=== PATIENT | female | born 1975 | race Caucasian/White ===

== ENCOUNTER 2024-06-26 07:44 | Outpatient (CLI) | payer OTHER, SELFPAY ==
--- NOTE | 2024-06-26 08:15 | CRLHL7_ITS ---
For Patients: As a result of the Century Cures Act, medical imaging exams and procedure reports are released immediately into your electronic medical record. You may view this report before your referring provider. If you have questions, please contact your health care provider. INDICATION: Leiomyoma of uterus TECHNIQUE: Multiplanar imaging of the pelvis was performed without and with 15 cc of Dotarem contrast material IV. COMPARISON: Pelvic ultrasound of 12/07/2019 FINDINGS: An intramural or submucosal fibroid measuring 12 x 11 x 7 cm is demonstrated central uterus. This can not be further localized as the endometrial stripe can not be identified with certainty. A 3.4 x 3.0 x 1.5 cm fibroid is demonstrated in right anterior lower uterine body and another 3.1 x 2.8 x 1.7 cm fibroid is demonstrated in the posterior lower uterine body. No other obvious fibroids noted. The ovaries are normal in size and shape. Multiple follicles are demonstrated in both ovaries. Small amount of physiologic free fluid is noted. The bowel is unremarkable except for colonic diverticulosis. No lymphadenopathy or other abnormality is demonstrated. IMPRESSION: Uterine fibroids, as above. Dictated by Delbert Garnett MD @ 06/27/2024 7:16:18 AM (Electronically Signed)
== END 2024-06-26 07:45 | disposition home or self-care (01) ==
LOC: MRI 07:45
PROVIDERS: Visit Provider Obstetrics & Gynecology
DX: D25.9 Leiomyoma of uterus, unspecified (principal)
CPT/HCPCS: 72197; A9575

== ENCOUNTER 2024-09-30 07:05 | Inpatient (IN) | payer OTHER, SELFPAY ==
[2024-09-30] VITALS (24 sets, daily range): BP systolic 140–189; BP diastolic 82–107; PULSE 71–85; RESP 14–20; TEMP 36.3–37.2; O2SAT 95–100; BMI 30.4
[2024-09-30 07:44] LABS: Hemoglobin* 13.8 gm/dL (12.0-16.0)
[2024-09-30 07:46] LABS: Ur HCG Qualitative* Negative (Negative)
[2024-09-30 08:02] LABS: Creatinine* 0.8 mg/dL (0.5-1.5); Estimated Glomerular Filt Rate 90 ml/min
[2024-09-30] MEDS: SODIUM CHLORIDE 0.9 % (FLUSH) 10 ML SYRINGE IVF (08:02)
[2024-09-30] MEDS: LACTATED RINGERS 1000 ML 1,000 ML 100 ML IV ×2 (08:57→10:44)
--- NOTE | 2024-09-30 08:57 | W.PM.H&PU ---
History & Physical Update History & Physical Update H&P Reviewed and patient assessed: No changes noted H&P Updates: Esperanza is a 48yo (C/S x2) seen in pre-op prior to [facility], bilateral salpingectomy and diagnostic cystoscopy for fibroid uterus. Please see my prior notes from 07/11 and 06/19/24 for complete details. Patient is feeling well today, has no acute concerns. We discussed her planned procedure in detail. I explained that I will try to use her existing Pfannenstiel incisions, but these may need to be extended more lateral than her previous incisions or a midline vertical incision could be required depending on our exam under anesthesia as this may allow for better visualization. We reviewed the risks of surgery again, including bleeding, infection, damage to surrounding structures and medical complications of surgery/anesthesia (VTE, AMI, stroke). Written consent was read and signed. We reviewed anticipated hospitalization of 2 nights. We again reviewed postoperative instructions and restrictions. Preop labs reviewed - UPT negative, hemoglobin 13.8, creatinine 0.8.
[2024-09-30] MEDS: CEFAZOLIN 2 GM INJ IVP (09:09)
--- NOTE | 2024-09-30 09:43 | W.PM.NB ---
Nerve Block Nerve Block Time Seen by Provider: 09:00 Date Seen: 09/30/24 Type of block requested by surgeon for post-operative analgesia: TAP Side: bilateral Time out performed: Yes Verification of patient name: Yes Verification of date of : Yes Site marking: site marked Name of person performing procedure: Zohaib Continuous monitoring Was continuous monitoring of O2 sat, B/P, radiation monitor, recorded every 15 minutes?: Yes Procedure Checklist: sterile prep, needles and gloves Ultrasound guided. Images saved: Yes Medications given in 5ml increments after negative aspiration: Marcaine %: 0.25 mL: 30 Needle gauge: 20 and Exparel mL: 10 Patient tolerated procedure well: Yes Additional comments: Needle noted between internal oblique and transversus abdominus. Local spread visualized Block Charges Block Charge (with Pro Fee): TAP Bilateral Use of Ultrasound Machine for Block: Yes- US Guidance/pain block
--- NOTE | 2024-09-30 09:44 | W.ANESCHARGE ---
Anesthesia Charges Start Date/Time Anesthesia Start Date: 09/30/24 Anesthesia Start Time: 08:57 Stop Date/Time Anesthesia Stop Date: 09/30/24 Anesthesia Stop Time: 14:21
--- NOTE | 2024-09-30 09:46 | SUR.OPER ---
PATIENT QUESTIONS ANSWERED SATISFACTORILY PREOPERATIVELY. PATIENT BROUGHT TO OR #4 PER CART. Patient positioned supine on OR #4 bed for the intubation. Pt. then moved into the lithotomy position for the procedure. Final approval of positioning by surgeon.
[2024-09-30] MEDS: KETOROLAC 30 MG/ML inj IVP (11:36)
[2024-09-30 12:37] LABS: Basophils Percent Auto 0.1 % (0.0-3.0); Eosinophils Percent Auto 0.1 % (0.0-7.0); Hematocrit 37.4 % (33.0-51.0); Hemoglobin* 12.4 gm/dL (12.0-16.0); Immature Granulocytes Pct Auto 0.2 %; Mean Corpuscular HGB Conc 33 gm/dL (32-36); Mean Corpuscular Hemoglobin 29 pg (26-34); Mean Corpuscular Volume 87 fL (80-100); Monocytes Percent Auto 2.4 % (0.0-11.0); Neutrophils Percent Auto 92.2 % (42.0-72.0); Platelet Count* 323 K/uL (140-440); RDW Coefficient of Variation % 14.3 % (11.5-15.5); Red Blood Count 4.29 m/uL (4.00-5.20)
[2024-09-30 12:39] LABS: Slide Review Reflex No
--- NOTE | 2024-09-30 14:29 | P.GYNPRC_ITS ---
Procedure Note Time Seen by Provider: 14:20 Date of procedure: 09/30/24 Will [facility] bill your pro fee for this procedure?: Yes Pre-op diagnosis: Fibroid Uterus Abnormal uterine bleeding - fibroids Procedure: Procedure #1: Total abdominal hysterectomy Bilateral salpingectomy Right oophorectomy Diagnostic cystoscopy Procedure #2: Exploratory laparotomy Diagnostic cystoscopy Anesthesia: GETA Complications: Reopening of Pfannenstiel excision for exploratory laparotomy in the setting of post-operative vaginal bleeding Surgeon: Oksana Noel MD Breaker Engineer: Sera Tillman Estimated blood loss (mL): 650 IV fluids (mL): 2,000 Urine Output (mL): 375 Pathology: specimen obtained, sent to pathology Condition: stable Disposition: floor Findings: Enlarged, bulky fibroid uterus Unremarkable bilateral fallopian tubes Right ovary with two simple cysts Unremarkable diagnostic cystoscopy, bilateral efflux noted Procedure Description: After obtaining informed consent, the patient was taken to the operating room where general anesthesia was obtained without difficulty. She was prepared and draped in the normal sterile fashion in the dorsal supine position [facility]. She received ancef in preoperative prophylaxis. A Phelps catheter was inserted sterilely into the bladder. A Pfannenstiel skin incision was made with a scalpel. This incision was carried down to the underlying layer of fascia with the Bovie. The fascia was incised in the midline and the incision extended laterally. The superior and inferior aspects of the fascial incision were grasped with Desiree clamps and the underlying rectus muscles dissected off sharply. The rectus muscles were in the midline. The underlying peritoneum was identified and entered bluntly. The peritoneal incision was extended superiorly and inferiorly with good visualization of the bladder. The patient was placed in some mild Trendelenburg positioning. The bowels were packed cephalad using a large moistened laparotomy sponge. The Eldon O re tractor was placed in the incision. This provided excellent visualization of the pelvis. The pelvis was inspected with the findings noted above. [place] clamps were placed at the cornua bilaterally for traction. The right fallopian tube was elevated, which was sequentially ligated and transected from the mesosalpinx using the Ligasure cautery device. We proceeded from the fimbriated end, lateral to medial, and the tube was amputated at the right uterine cornua. The same procedure was performed on the left. Both fallopian tubes were removed. As we were working, the two right simple ovarian cysts ruptured where electrocautery aided with hemostasis. Excellent hemostasis was noted. The left right round ligament was doubly clamped with Desiree clamps, transected, and suture ligated with 0 Vicryl. The anterior leaf of the broad ligament was opened to the midline from the left side. Adhesive disease was noted, taken down with a combination of blunt and sharp dissection, and electrocautery away from the bladder itself. The left ovarian ligament was then isolated, clamped across with 2 Nima clamps, transected, and doubly suture ligated with 0 Vicryl. Hemostasis was observed. The right round ligament was doubly clamped/ligated, where more dense adhesive disease was noted as we worked to take down the bladder flap on the right. Care was provided throughout to ensure safety of the bladder but establish a plane, first to allow for safe ligation of the uterine vessels. The bladder flap was reduced bilaterally to our satisfaction, then attention was turned to securing the uterine vessels. The uterine vessels were skeletonized on the right and left sides. There was notable increased vascularity bilaterally secondary to vascular recruitment by fibroid uterus. The left uterine vessels were clamped across with a Nima and a straight clamp, transected, and doubly suture ligated. Excellent hemostasis was obtained. We continued to work distally, where part of the remaining cardinal and uterosacral ligament attachments on left were clamped with straight Nima clamps adjacent to the lower uterine segment and cervix, transected and suture ligated with 0 Vicryl. Bleeding was noted, where an additional figure of eight was applied between the previously ligated uterine vessels and this new pedicle. Excellent hemostasis was noted. The right uterine vessels were similarly doubly clamped, transected and secured. A similar bite was taken on the right to free the remaining cardinal and uterosacral ligaments. Attention was turned back to the bladder flap, as further dissection was required to be free of the cervix. A sponge stick was utilized to gently reduce the reflection, where venous bleeding was noted throughout the lower margin of the flap but greatest at the right bladder pillars. This was addressed with pressure and careful electrocautery. Given difficulty of this dissection, decision was made to proceed with supracervical hysterectomy initially where we would then continue dissection to free and ultimately remove the bladder. The bulky fibroid uterus was transected from the cervical stalk with electrocautery and removed from the field to join existing pathologic specimens. Kochers were applied at the anterior and posterior cervix for traction. We continued to carefully take down the bladder flap using sharp and blunt dissection, until it was distal to site of colpotomy. Straight Nima clamps were placed parallel to the cervix to free the remaining cardinal ligament and uterosacral ligament attachments, where tissue was transected and secured with 0 vicryl Nima sutures. Two Nima clamps were placed across the vaginal cuff angles. The cervix was then transected and passed off the field. Bleeding was noted at the mid posterior cuff margin, secured with a jbqjdi-qc-xjvxo stitch with 2-0 vicryl. The vaginal cuff angles were fixed with Niam stitches of 0 Vicryl. The intervening vaginal cuff was closed with dzasxa-zb-rdzxs sutures of 0 Vicryl. Thorough evaluation of the operative site ensued, where 1st there was note of bleeding at the margin of the right ovary and pelvic sidewall. An additional stitch was applied with a jjyuga-on-okrdf of 0 Vicryl. The edges of the prior ovarian cyst ruptures were noted to be oozing, where a running 2 0 Vicryl was applied to attempt to gain hemostasis. Despite this, persistent bleeding occurred. Several xwjlyb-ov-jixtj sutures were utilized to again attempt to achieve hemostasis, unsuccessfully. Ultimately, a right oophorectomy was performed due to inability to control bleeding with pressure and suture ligation. The right infundibulopelvic ligament was identified, well away from the ureter. Nima clamps were utilized to doubly secure the right ovarian vessels, transected and the right ovary was handed off the operative field to join existing specimens. The right IP was doubly secured with free tie then Nima stitch with 0 Vicryl. The abdomen and pelvis were then copiously irrigated with warm water. Oozing was noted across the vesico uterine reflection, addressed with pressure and small bleeding vessels were isolated with DeBakey clamps and cauterized for hem ostasis. Repeat irrigation with warm water occurred, with no apparent ongoing bleeding. Poonam was applied over raw tissue edges, focusing on the vesicouterine reflection and vaginal cuff. IV fluorescein was administered. Diagnostic cystoscopy was then performed with a 70 degree cuff, where the bladder was backfilled with crystalloid. Bladder survey was unremarkable, no defect or suture material was visualized. Bilateral robust ureteral efflux was noted. All laparotomy sponges and instruments were then removed. The subfascial tissues were carefully inspected and hemostasis assured. The fascia was reapproximated in a running fashion with a looped 0-PDS. The subcutaneous tissues were copiously irrigated and hemostasis assured. The subcutaneous adipose layer was reapproximated with interrupted sutures of 2-0 vicryl. The skin was closed in a subcuticular fashion with 3-0 Monocryl. LiquiBand and a dressing were applied. The patient tolerated the procedure well. Sponge, lap, needle, instrument counts were reported as correct x2. Surgical debrief was completed - where specimens were uterus, cervix, bilateral fallopian tubes and right ovary. EBL 250cc, IVF 1500cc, UOP 75cc. I left the OR as removal of the drapes and planned extubation was occurring. A few minutes later, I was notified by the circulating RN that bleeding was noted per vagina. I return to the operating room, where the patient had not yet been extubated. She was significantly hypertensive (170s systolic) with HR in the 70s. Sterile speculum exam was performed, where moderate bleeding was noted throughout the vaginal cuff. This did seem to be greatest at the right cuff margin, which was grasped with a Nima clamp. 0 Vicryl suture was applied in a running fashion from the right side to the midline, where bleeding certainly did decrease. Still, given possibility of intra-abdominal bleeding decision was made to proceed with exploratory laparotomy via her existing Pfannenstiel incision. The existing Pfannenstiel was re-opened with sutures, then gentle traction to loosen and remove previous tissues. Once loop PDS was closed and peritoneal cavity was encountered, blood was readily apparent. This was evacuated with suction, approximately 250cc. The bowel was packed and Eldon retractor reintroduced. Pelvic survey was rapidly performed, with active bleeding noted at a right bladder pillar. This was inferomedial to the right uterine vessels, deep and at the base of the right vesicouterine reflection. Specific site of bleeding could be visualized and was secured with two cbvnrx-ta-sbjud sutures with 0 Vicryl. Hemostasis was much improved. Small oozing was noted at the posterior vaginal cuff, just left of midline. This was reinforced with a 0 vicryl fenhzc-hb-lroyw as well. All pedicles and the entire surgical field was examined and hemostasis was noted. Sterile water was instilled x3 for additional hemostasis checked, where no bleeding was noted. I then performed a 2nd diagnos tic cystoscopy, given the site of suture particularly at the right bladder pillar and my reinforcing vaginal cuff suture (from the vaginal approach) on the right. Comprehensive bladder survey was again negative, robust ureteral efflux was noted on the right. Left ureteral efflux was not assessed as no component of this surgery approximated the left ureter. Vaginal exam confirmed no vaginal bleeding. Abdominal survey was again performed to ensure hemostasis. The right pelvic side wall at the broad ligament and just distal to the IP vessels was noted to be oozing, where a right angle clamp was applied to secure bleeding vessel. Figure of eight stitch with 0 vicryl was placed, making care to avoid the deep pelvic sidewall and branches of the iliac vessels. Excellent hemostasis was noted t hroughout with comprehensive survey. Surgicel was applied across the vaginal cuff and right bladder pillar. All laparotomy sponges and instruments were then removed. The subfascial tissues were carefully inspected and hemostasis assured. The fascia was reapproximated in a running fashion with a looped 0-PDS. The subcutaneous tissues were copiously irrigated and hemostasis assured. The subcutaneous adipose layer was reapproximated with interrupted sutures of 2-0 vicryl. The skin was closed in a subcuticular fashion with 3-0 Monocryl. Several steri strips were placed overlying this. Silver dressing was applied. During the secondary surgery, ancef was redosed at 4 hours of operative time. 1g IV TXA was administered to assist with hemostasis. Debrief completed. No additional specimens sent. QBL from second procedure was 400cc, 500cc IVF and 250cc albumin, UOP 300cc.
--- NOTE | 2024-09-30 14:39 | W.ANESCHARGE ---
Anesthesia Charges Start Date/Time Anesthesia Start Date: 09/30/24 Anesthesia Start Time: 08:57 Stop Date/Time Anesthesia Stop Date: 09/30/24 Anesthesia Stop Time: 14:21
[2024-09-30] MEDS: fentaNYL 100 MCG/2 ML inj 50 MCG IVP ×2 (14:45→14:55)
[2024-09-30] MEDS: HYDRALAZINE HCL 20 MG/ML inj 5 MG IVP (15:50)
[2024-09-30] MEDS: AMLODIPINE 5 MG TABLET PO (16:55)
[2024-09-30 17:10] LABS: Basophils Percent Auto 0.1 % (0.0-3.0); Hematocrit 36.1 % (33.0-51.0); Hemoglobin* 11.9 gm/dL (12.0-16.0); Immature Granulocytes Pct Auto 0.2 %; Mean Corpuscular HGB Conc 33 gm/dL (32-36); Mean Corpuscular Hemoglobin 29 pg (26-34); Mean Corpuscular Volume 87 fL (80-100); Monocytes Percent Auto 4.2 % (0.0-11.0); Neutrophils Percent Auto 91.5 % (42.0-72.0); Platelet Count* 330 K/uL (140-440); RDW Coefficient of Variation % 13.9 % (11.5-15.5); Red Blood Count 4.13 m/uL (4.00-5.20); Slide Review Reflex No; White Blood Count* 17.61 K/uL (4.50-11.00)
--- NOTE | 2024-09-30 18:25 | PC.NURSE ---
End of shift: Pt arrived to unit @ 1515, accompanied by daughter. Pt AxOx4, pleasant, and cooperative. Phelps patent and draining. LSCTA. Op site CDI, active ice applied. Pt has a hx of HTNMD notified regarding high BPs. See MAR. Pt asymptomatic regarding BP. Pt reports pain and nausea that comes in waves. Pt stated tolerating and refused medication. Family at bedside during the evening. SL. Pt had a few bites of dinner which little appetite. Pt tolerating fluids well. No bleeding present vaginally, pad in place. SCDs on. Pt appears resting with call light in reach.
--- NOTE | 2024-09-30 18:57 | PC.NURSE ---
Pt had one episode of emesis @ 1845. Pt noted relief and feeling much better. Gown changed. Continuing to monitor.
[2024-09-30] MEDS: ACETAMINOPHEN 325 MG TABLET 650 MG PO (20:09)
[2024-09-30 20:30] LABS: Hematocrit 33.8 % (33.0-51.0); Hemoglobin* 11.3 gm/dL (12.0-16.0); Immature Granulocytes Pct Auto 0.1 %; Lymphocytes Percent Auto 3.2 % (20-44); Mean Corpuscular HGB Conc 33 gm/dL (32-36); Mean Corpuscular Hemoglobin 29 pg (26-34); Mean Corpuscular Volume 86 fL (80-100); Monocytes Percent Auto 2.6 % (0.0-11.0); Neutrophils Percent Auto 94.1 % (42.0-72.0); Platelet Count* 296 K/uL (140-440); RDW Coefficient of Variation % 13.8 % (11.5-15.5); Red Blood Count 3.91 m/uL (4.00-5.20); White Blood Count* 15.18 K/uL (4.50-11.00)
[2024-09-30 20:39] LABS: Slide Review Reflex No
[2024-09-30] MEDS: OXYCODONE 5 MG TABLET PO ×2 (21:35→22:32)
[2024-10-01 00:41] LABS: Basophils Percent Auto 0.1 % (0.0-3.0); Hematocrit 33.2 % (33.0-51.0); Hemoglobin* 11.2 gm/dL (12.0-16.0); Immature Granulocytes Pct Auto 0.1 %; Lymphocytes Percent Auto 5.6 % (20-44); Mean Corpuscular HGB Conc 34 gm/dL (32-36); Mean Corpuscular Hemoglobin 29 pg (26-34); Mean Corpuscular Volume 87 fL (80-100); Monocytes Percent Auto 4.9 % (0.0-11.0); Neutrophils Percent Auto 89.3 % (42.0-72.0); Platelet Count* 324 K/uL (140-440); RDW Coefficient of Variation % 14.2 % (11.5-15.5); Red Blood Count 3.84 m/uL (4.00-5.20); White Blood Count* 13.91 K/uL (4.50-11.00)
[2024-10-01 00:43] LABS: Slide Review Reflex No
[2024-10-01] MEDS: ACETAMINOPHEN 325 MG TABLET 650 MG PO ×3 (00:46→15:39)
--- NOTE | 2024-10-01 00:50 | PC.NURSE ---
Patient pleasant, alert and oriented. C/O pain and nausea that comes and goes. No further emesis. Declined PRN Zofran when offered. Given PRN Tylenol and PRN Oxycodone for pain rated 4-5/10. Dressing C,D&I. No vaginal bleeding. BP 164/88. ?
[2024-10-01] MEDS: OXYCODONE 5 MG TABLET PO ×4 (02:45→20:49)
[2024-10-01 02:47] VITALS: BP 162/100; BP 174/94; PULSE 76; RESP 18; TEMP 37; O2SAT 100
[2024-10-01 05:06] LABS: Basophils Percent Auto 0.2 % (0.0-3.0); Eosinophils Percent Auto 0.1 % (0.0-7.0); Hematocrit 31.9 % (33.0-51.0); Hemoglobin* 10.9 gm/dL (12.0-16.0); Immature Granulocytes Pct Auto 0.2 %; Lymphocytes Percent Auto 11.3 % (20-44); Mean Corpuscular HGB Conc 34 gm/dL (32-36); Mean Corpuscular Hemoglobin 30 pg (26-34); Mean Corpuscular Volume 86 fL (80-100); Monocytes Percent Auto 10.1 % (0.0-11.0); Neutrophils Percent Auto 78.1 % (42.0-72.0); Platelet Count* 332 K/uL (140-440); Red Blood Count 3.69 m/uL (4.00-5.20); White Blood Count* 13.21 K/uL (4.50-11.00)
[2024-10-01 05:09] LABS: Slide Review Reflex No
[2024-10-01] MEDS: ONDANSETRON 2 MG/ML inj 4 MG IVP (06:10)
[2024-10-01] MEDS: SODIUM CHLORIDE 0.9 % (FLUSH) 10 ML SYRINGE IVF (06:10)
[2024-10-01 06:49] VITALS: BP 158/88; PULSE 71; RESP 18; TEMP 36.6; O2SAT 96
--- NOTE | 2024-10-01 08:00 | PC.NURSE ---
Pt alert and oriented x3. Afebrile. No vaginal bleeding overnight. Pt reports 5-6/10 pain in lower abdomen, pain managed with PRN medications. Pt?s casas is patent and draining. Pt is up A1. Pt was able to stand on scale but became nauseous and wanted to lie back down. Pt dry heaved, no emesis, PRN zofran given with relief. ??
--- NOTE | 2024-10-01 08:06 | PM.GYNPNPO ---
CREDIT FRONT OFFICE DEVELOPER - A/P Assessment and plan (1) Uterine fibroid: Status: Acute (2) Hypertension: Status: Chronic Plan Esperanza is a 48yo seen on POD1 from [facility], bilateral salpingectomy, right oophorectomy and cystoscopy - complicated by vaginal bleeding that prompted exploratory laparotomy and second diagnostic cystoscopy. Total QBL was 650cc. Diligent monitoring occurred over night, with regard to her vitals, urine output and repeat hemoglobin q4h. Fortunately, her vitals are only significant for hypertension (consistent with known essential hypertension), with no tachycardia and adequate UOP. Pain is relatively well controlled, but she has not trialed ambulation. Pain has been maintained with Tylenol and oxycodone x1 overnight. Plan to resume and since this morning, order for Toradol x1 with ibuprofen to follow. We will not obtain any further serial labs, plan to recheck only as clinically indicated. Disposition will be inpatient again overnight. Goals for the day include: Gentle p.o. intake, ambulation, catheter removal, pain control. Postoperative Procedures: Procedures Operation Date: 09/30/24 08:45 Actual Procedure Side Surgeon p Admit-Total Abdominal Hysterectomy, Bilateral Salpingectomy, Right Oophorectomy, Diagnostic Cystoscopy Jaycee Noel MD s Exploratory Laparotomy, diagnostic cystoscopy Jaycee Noel MD Postoperative day: 1 Postoperative status: doing well Postoperative plan: routine post-op care, ambulate and advance diet Time Spent With Patient Time: Total time spent is greater than 50% in coordination of care (as documented) at patient's floor/unit and/or counseling patient: Time with patient: 25 - 35 minutes CREDIT FRONT OFFICE DEVELOPER- PN:Subj Post-Op Subjective Time Seen by Provider: 07:40 Date Seen: 10/01/24 Post Operative Details: Post-operative day number 1: status post [facility], bilateral salpingectomy, right oophorectomy, diagnostic cystoscopy and reopening for exploratory laparotomy and diagnostic cystoscopy due to vaginal bleeding. This morning, Esperanza notes she is feeling better than yesterday evening. She did have postoperative not see a and vomiting x1. Her pain is well controlled, though exacerbated when she stood to be weighed this morning. That is the only time she has been up and out of bed thus far. Phelps catheter remains in Situ. She notes her appetite has returned and she feels grumbling in her abdomen, no passage of flatus yet. No bowel movement. No vaginal bleeding. Patient denies dizziness/lightheadedness, chest pain, dyspnea, lower extremity pain, swelling or erythema. I did round on Esperanza and debriefed yesterday afternoon. Still, I re-reviewed her intraoperative course in detail with Esperanza and her daughter. All questions answered. We did very close vital sign, urine output and lab monitoring overnight given the need to proceed to an exploratory laparotomy for bleeding. Fortunately, her vital signs have remained reassuring - where she was noted to not have tachycardia, was hypertensive (consistent with history of essential hypertension), had adequate urine output and Q 4 labs have been stable at 11.3, then 11.2 then 10.9 overnight. CREDIT FRONT OFFICE DEVELOPER-PN: Obj Exam Physical Exam: Vital signs: Temp Pulse Resp BP Pulse Ox O2 Del Method 97.8 F 71 18 158/88 H 96 Room Air 10/01/24 06:49 10/01/24 06:49 10/01/24 06:49 10/01/24 06:49 10/01/24 06:49 10/01/24 06:49 Narrative: General: Alert and oriented, in no acute distress Psych: Appropriate mood and affect Abdomen: Soft, nondistended. Tender to palpation, greatest in the lower abdomen consistent with postoperative state. No rebound or guarding. Silver dressing in place, appears clean and dry. No peripheral ecchymosis or erythema. Extremities: SCDs in place. Calves are nontender, without erythema or tenderness. Urinary Catheter Management: 2-way Urethral: Cath placed during this visit: no CREDIT FRONT OFFICE DEVELOPER - PN: Obj Data Labs Labs: Laboratory Results - last 24 hr 09/30/24 09/30/24 09/30/24 07:37 12:30 16:50 WBC 18.80 H 17.61 H RBC 4.29 4.13 Hgb 12.4 11.9 L Hct 37.4 36.1 MCV 87 87 MCH 29 29 MCHC 33 33 RDW Coeff of Dharmesh 14.3 13.9 Plt Count 323 330 Neut % (Auto) 92.2 H 91.5 H Lymph % (Auto) 5.0 L 4.0 L [place] % (Auto) 2.4 4.2 Eos % (Auto) 0.1 0.0 Baso % (Auto) 0.1 0.1 Neut # (Auto) 17.30 H 16.10 H Lymph # (Auto) 0.90 0.70 L [place] # (Auto) 0.50 0.70 Eos # (Auto) 0.00 0.00 Baso # (Auto) 0.00 0.00 Abs Immat Gran (auto) 0.00 0.00 Imm/Tot Granulo (auto) 0.2 0.2 Blood Type O Positive Antibody Screen NEGATIVE 09/30/24 10/01/24 10/01/24 20:25 00:30 04:40 WBC 15.18 H 13.91 H 13.21 H RBC 3.91 L 3.84 L 3.69 L Hgb 11.3 L 11.2 L 10.9 L Hct 33.8 33.2 31.9 L MCV 86 87 86 MCH 29 29 30 MCHC 33 34 34 RDW Coeff of Dharmesh 13.8 14.2 14.0 Plt Count 296 324 332 Neut % (Auto) 94.1 H 89.3 H 78.1 H Lymph % (Auto) 3.2 L 5.6 L 11.3 L [place] % (Auto) 2.6 4.9 10.1 Eos % (Auto) 0.0 0.0 0.1 Baso % (Auto) 0.0 0.1 0.2 Neut # (Auto) 14.30 H 12.40 H 10.30 H Lymph # (Auto) 0.50 L 0.80 L 1.50 [place] # (Auto) 0.40 0.70 1.30 H Eos # (Auto) 0.00 0.00 0.00 Baso # (Auto) 0.00 0.00 0.00 Abs Immat Gran (auto) 0.00 0.00 0.00 Imm/Tot Granulo (auto) 0.1 0.1 0.2 Blood Type Antibody Screen
[2024-10-01] MEDS: AMLODIPINE 5 MG TABLET PO (08:47)
[2024-10-01] MEDS: KETOROLAC 15 MG/ML inj IVP (11:03)
[2024-10-01 12:51] VITALS: BP 158/98; PULSE 83; RESP 18; TEMP 36.7; O2SAT 97
[2024-10-01 16:39] VITALS: BP 134/87; PULSE 78; RESP 16; TEMP 36.3; O2SAT 99
[2024-10-01 19:00] VITALS: BP 152/90; PULSE 73; RESP 16; TEMP 36.4; O2SAT 97
[2024-10-01 22:38] VITALS: BP 135/83; PULSE 79; RESP 16; TEMP 36.3; O2SAT 94
[2024-10-02 03:00] VITALS: BP 155/96; PULSE 78; RESP 16; TEMP 36.6; O2SAT 96
--- NOTE | 2024-10-02 04:36 | PC.NURSE ---
Shift note: Pt is post day 2, alert and oriented. She is doing well with regular diet. Ambulated with A1, walker and GB. Dressing intact, clean and dry. Pain level at 0200 was 7. Oxycodone 5mg given and was effective. Hypoactive bowel sound. No BM but pass gas.
--- NOTE | 2024-10-02 07:49 | P.DS_ITS ---
DS: Providers Provider Time Seen by Provider: 08:10 Date Seen: 10/02/24 Date of admission: 09/30/24 07:05 Primary care physician: Not a Local Provider Admitting Clinician: Jaycee Noel MD Attending Physician on discharge: Sera Tillman MD DS: Diagnosis Discharge Diagnosis (1) Status post abdominal hysterectomy and right salpingo-oophorectomy: Status: Acute TECHNICAL SPECIALIST CYTOGENETICS-Discharge Summary Hospital Course Hospital Course Narrative: Patient is a 48 year old admitted on 09/30/2024 for a scheduled total abdominal hysterectomy with bilateral salpingectomy. Unplanned right oophorectomy to control bleeding Indication for surgery: Uterine fibroids. Intraoperative findings were notable for enlarged uterus, normal tubes and ovaries. She had an uncomplicated surgery. Postoperative course has been uneventful. Vitals have been stable. She has remained afebrile. Today, on postoperative day 2, she reports the pain is well controlled. She has been able to ambulate Without difficulty. She is tolerating regular diet. She is passing flatus. Phelps catheter has been removed, and she is voiding without difficulty. Time Spent with Patient Time attestation: Total time spent providing and/or coordinating discharge services: Time spent: Less than 30 minutes TECHNICAL SPECIALIST CYTOGENETICS - Exam Physical Exam: Vital signs: Temp Pulse Resp BP Pulse Ox O2 Del Method 97.8 F 78 16 155/96 H 96 Room Air 10/02/24 03:00 10/02/24 03:00 10/02/24 03:00 10/02/24 03:00 10/02/24 03:00 10/02/24 03:00 Narrative: General: Pleasant, woman in no acute distress. Vital signs: Included in her electronic medical record. Heart: Regular rate and rhythm without gallop, rub or murmur. Chest: Clear to auscultation bilaterally without wheezes, rales or rhonchi. Abdomen: Mildly distended, soft, nontender with normal bowel sounds throughout. No CVA or flank tenderness. Incision: Silver-containing dressing in place. Dressing is clean, dry and intact. Extremities: No pain or edema TECHNICAL SPECIALIST CYTOGENETICS - DS: Data Procedures Procedures: Procedures Operation Date: 09/30/24 08:45 Actual Procedure Side Surgeon p Admit-Total Abdominal Hysterectomy, Bilateral Salpingectomy, Right Oophorectomy, Diagnostic Cystoscopy Jaycee Noel MD s Exploratory Laparotomy, diagnostic cystoscopy Jaycee Noel MD Discharge Plan Discharge Disposition: Home, Self-Care Date of Admission: 09/30/24 07:05 Attending Provider on Discharge: Sera Tillman Primary Care Provider: Provider,Not a Local Condition: Stable Anticipated Discharge Date/Time: 10/02/24 Discharge Medications: New oxycodone 5 mg Tablet 5 mg PO Q4H PRN (Reason: Moderate Pain) Qty: 20 0RF Continued lisinopril 10 mg tablet 10 mg PO DAILY amlodipine 5 mg tablet 5 mg PO DAILY atorvastatin 10 mg tablet 10 mg PO HS Discharge Orders: Discharge Order (Routine); Ordered 10/02/24 Ordered By: Sera Tillman Patient Education: Hysterectomy (DC) Additional Instructions: Lifting restrictions: Please do not lift more than 20lbs for 6 weeks Sexual restriction: Pelvic rest for 6 weeks (no intercourse or tampons) Pain control: Over the counter Motrin 600 mg (3 tablets) by mouth every six hours on a full stomach for pain as needed Over the counter Acetaminophen 1000 mg by mouth every six hours on a full stomach for pain as needed Oxycodone 5mg every 4 hours as needed for breakthrough pain Please call with: - Heavy vaginal bleeding - Increasing or severe abdominal pain - Fevers/chills - Inability to tolerate solid/liquids by mouth, recurrent nausea/vomiting - Incision redness/drainage - Signs or symptoms of a blood clot - calf pain, redness, swelling, chest pain or shortness of breath Follow up appointments: 1. Next week on Sunday10/07/2024 to remove your dressing, incision check. 2. 6 weeks postop visit. Activity Level: Other Discharge Diet: Regular Follow Up Appointments: Provider,Not a Local [Primary Care Provider] - Jaycee Noel MD [Staff Physician] - Forms: Glipho Info Instructions
[2024-10-02] MEDS: AMLODIPINE 5 MG TABLET PO (08:41)
[2024-10-02] MEDS: IBUPROFEN 600 MG TABLET PO (08:41)
[2024-10-02] MEDS: OXYCODONE 5 MG TABLET PO (08:41)
== END 2024-10-02 09:10 | disposition home or self-care (01) | DRG 742 ==
PROVIDERS: Admitting Provider Obstetrics & Gynecology; Visit Provider Obstetrics & Gynecology
PROC: 0UT94ZZ Resection of Uterus, Percutaneous Endoscopic Approach (ICD-10-PCS; CPT 52000; principal; 2024-09-30 08:45)
PROC: 0UT90ZZ Resection of Uterus, Open Approach (ICD-10-PCS; CPT 49000; 2024-09-30 08:45)
DX: D25.9 Leiomyoma of uterus, unspecified (principal); N99.820 Postprocedural hemorrhage of a genitourinary system organ or structure following a genitourinary system procedure; N92.0 Excessive and frequent menstruation with regular cycle; N94.6 Dysmenorrhea, unspecified; G89.18 Other acute postprocedural pain; I10 Essential (primary) hypertension; F17.200 Nicotine dependence, unspecified, uncomplicated
CPT/HCPCS: 00840; 36415; 64488; 76942; 81025; 82565; 85018; 85025; 86850; 86900; 86901; 88307; A9270; C9290; J0360; J0665; J0690; J1100; J1171; J1885; J2250; J2405; J2704; J2710; J3010; J3475; J3490; J7120